=== PATIENT | male | born 1965 | race Caucasian/White ===

== ENCOUNTER 2018-05-30 05:54 | Outpatient (CLI) | payer OTHER ==
[~2018-05-30] VITALS: Ht 180.3 cm; Wt 99.8 kg
[2018-05-30] MEDS ORDERED: FOLI1TAB24 PO (14:48)
[2018-05-30] MEDS ORDERED: METH2.5T PO (14:48)
[2018-05-30] MEDS ORDERED: POTA10TA17 PO (14:48)
[2018-05-30] MEDS ORDERED: ZOLP12.546 PO (14:48)
[2018-05-30] MEDS ORDERED: LOSA25TA41 PO (14:48)
== END 2018-05-30 14:49 | disposition home or self-care (01) ==
LOC: PREOP 05:54
PROVIDERS: ATTEND Surgery
DX: Z01.818 Encounter for other preprocedural examination (principal)

== ENCOUNTER 2018-06-06 12:14 | Day surgery (SDC) | payer OTHER ==
[~2018-06-06] VITALS: Ht 180.3 cm; Wt 99.8 kg
[~2018-06-06 12:14] MED LIST: FOLI1TAB24 PO; LOSA25TA41 PO; METH2.5T PO; POTA10TA17 PO; ZOLP12.546 PO
[2018-06-06 12:22] VITALS: BP 143/91
[2018-06-06] MEDS ORDERED: LACTATED RINGERS 1,000 ML IV STA (12:32)
[2018-06-06] MEDS ORDERED: LACTATED RINGERS 1,000 ML IV ONE (12:38)
[2018-06-06] MEDS ORDERED: HURRICAINE EXT TUBE (BENZOCAINE) XX PRN (12:45)
[2018-06-06] MEDS ORDERED: MIDAZOLAM 2 MG/2 ML (VERSED) VIAL ONE (13:49)
[2018-06-06] MEDS ORDERED: PROPOFOL INJECTION 50 ML IV ONE (13:49)
--- NOTE | 2018-06-06 13:56 | Progress Note-Pre Operative ---
Pre-Operative Progress Note H&P Reviewed The H&P was reviewed, patient examined and no changes noted. Date Seen by Provider: Jun 06, 2018 Time Seen by Provider: 13:56 Date H&P Reviewed: Jun 06, 2018 Time H&P Reviewed: 13:56 Pre-Operative Diagnosis: family history colon cancer, abdominal bloating KERRI BRYANT DO Jun 06, 2018 13:56
--- NOTE | 2018-06-06 14:44 | Discharge Inst-Simple/Standard ---
Discharge Inst-Standard Patient Instructions/Follow Up Plan of Care/Instructions/FU: 2 weeks Evelio Activity as Tolerated: Yes Discharge Diet: Regular Diet KERRI BRYANT DO Jun 06, 2018 14:44
--- NOTE | 2018-06-06 14:48 | Progress Note-Post Operative ---
Post-Operative Progess Note Surgeon (s)/Grain Oilseed Or Pasture Grower (s) Surgeon KERRI BRYANT DO Grain Oilseed Or Pasture Grower: na Pre-Operative Diagnosis family history colon cancer, abdominal bloating Post-Operative Diagnosis normal egd, normal colon Procedure & Operative Findings Date of Procedure 06/06/18 Procedure Performed/Findings egd c biopsy and colonoscopy Anesthesia Type per chemical plant manager Estimated Blood Loss Estimated blood loss (mL): na Specimens/Packing Specimens Removed antrum KERRI BRYANT DO Jun 06, 2018 14:48
[2018-06-06 15:00] VITALS: BP 120/79
[2018-06-06 15:25] VITALS: BP 145/75
--- NOTE | 2018-06-06 20:33 | OPERATIVE REPORT ---
DATE OF SERVICE: 06/06/2018 PREOPERATIVE DIAGNOSIS: Family history of colon cancer, abdominal bloating. POSTOPERATIVE DIAGNOSIS: Normal EGD. Normal colon. PROCEDURE: EGD with biopsy and colonoscopy. SURGEON: Kerri Fraser DO ANESTHESIA: Per AGRICULTURAL SYSTEMS SPECIALIST. ESTIMATED BLOOD LOSS: None. SPECIMENS REMOVED: Antrum. INDICATIONS: The patient is a 53-year-old male, who has family history of colon cancer. He has also been having some abdominal bloating from time to time. He understands risks and benefits of procedures and wished to proceed with procedure. Consent was signed in the chart. PROCEDURE IN DETAIL: The patient was taken to the endoscopy suite, placed in left lateral recumbent position. Timeout was performed. Scope was inserted in the mouth, down the esophagus, stomach and into the duodenum without no difficulty. There were no polyps, masses or ulcerations. Scope was slowly retracted back in the stomach where it was further insufflated. Maybe some reactive changes. Biopsy of the antrum was obtained. No polyps, masses or ulcerations. Scope was retroflexed noting no other pathology. Scope was returned to its normal position, slowly withdrawn to the distal esophagus, which had normal appearance. Scope was slowly retracted back to completely removed, noting no other pathology. Digital rectal exam was performed. There were no palpable polyps, masses or ulcerations. The prostate felt normal. No masses. Scope was inserted in the rectum, advanced all the way to the cecum with minimal difficulty. Prep was adequate. Scope was then slowly retracted back. There were no polyps, masses or ulcerations within the cecum, ascending, transverse, descending and sigmoid colon. Once in the rectum, scope was retroflexed noting some internal hemorrhoids. Scope was returned to its normal position, slowly withdrawn until completely removed. The patient tolerated the procedure well without complications and taken to recovery room in stable condition. RECOMMENDATIONS: The patient will follow up in 2 weeks to discuss pathology results on biopsy of the antrum. The patient will need repeat colonoscopy in 5 years due to his family history of colon cancer. If he has any issues before that, he should be seen at that time. Job ID: [id number] DocumentID: [id number] Dictated Date: 06/06/2018 14:48:13 Body Man Date: 06/06/2018 20:32:58 Dictated By: KERRI FRASER DO
== END 2018-06-06 15:30 | disposition home or self-care (01) ==
LOC: ENDO 12:14
PROVIDERS: ATTEND Surgery
DX: Z12.11 Encounter for screening for malignant neoplasm of colon (principal); Z80.0 Family history of malignant neoplasm of digestive organs; R14.0 Abdominal distension (gaseous); I10 Essential (primary) hypertension; G47.33 Obstructive sleep apnea (adult) (pediatric); Z79.899 Other long term (current) drug therapy